=== PATIENT | male | born 1995 | race Hispanic/Latino ===

== ENCOUNTER 2017-12-01 00:33 | Emergency (ER) | payer OTHER, MEDICAID, SELFPAY ==
[2017-12-01 00:49] VITALS: BP 135/85; PULSE 68; RESP 15; TEMP 36.8; O2SAT 98; BMI 23.7
--- NOTE | 2017-12-01 01:20 | ED_ITS ---
HPI - Male Genitourinary General Chief complaint: Urogenital-Male Stated complaint: TESTICLE PAIN Time Seen by Provider: 12/01/17 01:19 Source: patient Mode of arrival: ambulatory Limitations: no limitations History of Present Illness HPI Narrative: The patient has been having intermittent left hemiscrotum pain for 2 months. He has been seen previously. He has been tested for low testosterone and hypogonadism. He was referred to Urology, nothing was done other than ordering an ultrasound of the scrotum. He presents now with increased discomfort the last 2 days. He has no fever, there is no swelling. There is no penile discharge. His significant other was with him, neither has a history of STD. There are no associated skin lesions. Related Data Previous Rx's Medication Instructions Recorded doxycycline hyclate 100 mg PO BID #28 cap 12/01/17 Allergies Allergy/AdvReac Type Severity Reaction Status Date / Time No Known Allergies Allergy Uncoded 12/01/17 00:49 Review of Systems Constitutional Denies chills, Denies fatigue, Denies fever(s) and Denies night sweats ENT Ears, Nose, Mouth, and Throat: Denies dysphagia Gastrointestinal Gastrointestinal: Denies abdominal pain, Denies change in bowel habits, Denies constipation, Denies cramping, Denies dysphagia, Denies diarrhea, Denies nausea and Denies vomiting Genitourinary Reports as per HPI, Denies hematuria, Denies difficulty urinating, Denies genital lesions, Reports genital pain, Denies dysuria, Denies urinary incontinence and Denies urinary urgency Musculoskeletal Reports abnormal gait Integumentary/Breasts Denies pruritus, Denies erythema, Denies rash and Denies wounds Neurologic Reports abnormal gait Endocrine Denies fatigue [facility] Social History Smoking Status: Never smoker Exam Initial Vital Signs Initial Vital Signs: Vital Signs Temperature 98.3 F 12/01/17 00:49 Pulse Rate 68 12/01/17 00:49 Respiratory Rate 15 12/01/17 00:49 Blood Pressure 135/85 H 12/01/17 00:49 Pulse Oximetry 98 12/01/17 00:49 Const General: healthy appearing, comfortable, well developed and well groomed GI Inspection: non-distended Palpation: soft, no hepatosplenomegaly, No guarding, No pulsatile mass and No tender Auscultation: normal bowel sounds External: normal external exam Penis: normal penis Testes: other (Testicles are both normal. There is no scrotal mass. He has left epididymal tenderness only. Exam is consistent with epididymitis.) Course Orders Ordered: Discontinued Medications Doxycycline Hyclate (Vibramycin) 100 mg PO NOW ONE Stop: 12/01/17 01:28 Last Admin: 12/01/17 01:47 Dose: 100 mg Vital Signs - 8 hr 12/01/17 00:49 Temperature 98.3 F Pulse Rate 68 Respiratory Rate 15 Blood Pressure 135/85 H Pulse Oximetry 98 Discharge Plan Departure Patient Disposition: Home, Self-Care Clinical Impression: Acute epididymitis, Epididymitis Discharge Date/Time: 12/01/17 02:00 Interventions: ED Discharge Assessment Last Done: 12/01/17 02:00 Instructions: Epididymitis Activity Restrictions/Additional Instructions: Doxycycline 2 times daily as prescribed. Be sure you are drinking plenty of water. Follow-up with your doctor as planned. Return if worse. Prescriptions: New doxycycline hyclate 100 mg capsule 100 mg PO BID Qty: 28 RF: 0
[2017-12-01] MEDS: DOXYCYCLINE HYCLATE 100 MG TABLET PO (01:47)
== END 2017-12-01 02:00 | disposition home or self-care (01) ==
PROVIDERS: Emergency Provider Emergency Medicine
DX: N45.1 Epididymitis (principal)
CPT/HCPCS: 81003; 99282

== ENCOUNTER → 2017-12-05 08:03 | Outpatient (CLI) | payer OTHER, MEDICAID, SELFPAY ==
--- NOTE | 2017-12-05 | DI.US.S_ITS ---
PROCEDURE: US SCROTUM INDICATIONS: Left testicular pain TECHNIQUE: Real-time scanning was performed of the scrotum and testicles, with image documentation. Color and pulse Doppler interrogation was performed of both testicles. COMPARISON: None. FINDINGS: Right: Testicle is normal in size at 4.6 x 2.2 x 2.9 cm. Echogenic foci are present, consistent with medical calcifications. Epididymis is normal in overall size and morphology. No hydrocele. Moderate-sized varicoceles. Overlying scrotal skin is normal in thickness. Left: Testicle is normal in size at 4.9 x 2.1 x 3.2 cm, and demonstrates multiple foci of microcalcifications. Epididymis is normal in overall size and morphology. No hydrocele. Moderate-sized varicoceles. Overlying scrotal skin is normal in thickness. Doppler: Color and pulse Doppler demonstrate normal and symmetric arterial flow in both testicles. IMPRESSION: 1. Testicular microlithiasis. This finding has increased risk for testicular cancer. Recommend clinical examination and self-examination. Ultrasound followup when clinically indicated. 2. No testicular mass or evidence for testicular portion. Intermittent torsion, however, is not excluded. 3. No evidence for epididymitis. 4. Moderate-sized varicoceles bilaterally. Dictated by: Rebeca Conroy M.D. on 12/05/2017 at 16:57 Approved by: Rebeca Conroy M.D. on 12/05/2017 at 17:03
== END ==
PROVIDERS: Visit Provider Physician Assistant
DX: N50.812 Left testicular pain (principal); I86.1 Scrotal varices
CPT/HCPCS: 76870

== ENCOUNTER 2018-01-24 19:00 | Emergency (ER) | payer OTHER, SELFPAY ==
[2018-01-24 19:12] VITALS: BP 128/82; PULSE 86; RESP 18; TEMP 36.2; O2SAT 98; BMI 23.7
--- NOTE | 2018-01-24 19:28 | ED.ANIMALBIT ---
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 He was helping to stay and vaccinate a 6-month-old kitten when it bit him, catching the edge of his right thumb a little earlier. He cleaned it thoroughly with chlorhexidine. He states that the kitten had not been vaccinated yet but does not have any signs of rabies and had been living with a family, so this is not a concern at the vet. He denies any weakness, paresthesia or pain in the thumb currently, but thought he might need antibiotics. He also has questions about side effects and pain medication to take for his recent varicocele surgery a week ago. He stopped Vicodin because it made him itchy and he has felt sort of foggy since off of the anesthesia. He was initially told he could not take NSAIDs. He denies any acute symptoms today. He has not had any new fever other complaints. Related Data Previous Rx's Medication Instructions Recorded amoxicillin-pot clavulanate 1 tab PO Q12H #14 tab 01/24/18 [Augmentin] Allergies Allergy/AdvReac Type Severity Reaction Status Date / Time No Known Allergies Allergy Uncoded 12/01/17 00:49 Review of Systems <Michelle Mccracken PA-C - Last Filed: 01/24/18 22:23> Review of Systems All systems reviewed & are unremarkable except as noted in HPI and below Exam <Michelle Mccracken PA-C - Last Filed: 01/24/18 22:23> Narrative Exam Narrative: GENERAL APPEARANCE: Patient sitting comfortably, in no distress. LUNGS: Clear to auscultation bilaterally. HEART: Rate and rhythm regular without murmur, normal S1 and S2, no S3 or S4. DERMATOLOGIC: Right thumb tip just inferior to the nail there is a 5 mm semi circular superficial partial avulsion but no skin flap. Minimal tenderness. No d/c or active bleeding MUSCULOSKELETAL: Right thumb full range of motion. Strength is intact in all harrell against resistance. No joint effusion NEUROVASCULAR: Right thumb is warm and pink with brisk cap refill. Sensation is grossly intact Initial Vital Signs Initial Vital Signs: Vital Signs Temperature 97.2 F L 01/24/18 19:12 Pulse Rate 86 01/24/18 19:12 Respiratory Rate 18 01/24/18 19:12 Blood Pressure 128/82 H 01/24/18 19:12 Pulse Oximetry 98 01/24/18 19:12 <Osman Arora DO - Last Filed: 01/25/18 03:18> Initial Vital Signs Initial Vital Signs: Vital Signs Temperature 97.2 F L 01/24/18 19:12 Pulse Rate 86 01/24/18 19:12 Respiratory Rate 18 01/24/18 19:12 Blood Pressure 128/82 H 01/24/18 19:12 Pulse Oximetry 98 01/24/18 19:12 Course <Michelle Mccracken PA-C - Last Filed: 01/24/18 22:23> Vital Signs - 8 hr 01/24/18 19:12 Temperature 97.2 F L Pulse Rate 86 Respiratory Rate 18 Blood Pressure 128/82 H Pulse Oximetry 98 <Osman Arora DO - Last Filed: 01/25/18 03:18> Vital Signs - 8 hr 01/24/18 19:12 Temperature 97.2 F L Pulse Rate 86 Respiratory Rate 18 Blood Pressure 128/82 H Pulse Oximetry 98 Discharge Plan Departure Patient Disposition: Home Clinical Impression: Cat bite Discharge Date/Time: 01/24/18 20:01 Interventions: ED Discharge Assessment Last Done: 01/24/18 20:00 Instructions: DI for Cat Bite Activity Restrictions/Additional Instructions: Please return if you have any acutely worsening symptoms as we talked about, such as fever, spreading redness, draining pus. Please picking tech and start the antibiotic tonight. Please stay off of work tomorrow so that you can talk with your surgeon about anesthesia side effects and your postoperative pain. Please see if it is okay for you to try taking Aleve, 1-2 tabs twice daily, or ibuprofen 3-4 tab every 8 hr for pain, which should not make you sleepy. You can also add Tylenol as needed Prescriptions: New amoxicillin-pot clavulanate [Augmentin] 875-125 mg tablet 1 tab PO Q12H Qty: 14 RF: 0 Discontinued doxycycline hyclate 100 mg capsule 100 mg PO BID Qty: 28 RF: 0 Stand Alone Forms: Work/School Restrictions <Osman Arora DO - Last Filed: 01/25/18 03:18> Cosign ED Attending Cosarsenioature Attestation: I was immediately available in the department for consultation. Documentation has been reviewed. I agree with assessment and plan.
--- NOTE | 2018-01-24 20:03 | PC.NURSE ---
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
== END 2018-01-24 20:01 | disposition home or self-care (01) ==
PROVIDERS: Emergency Provider Internal Medicine
DX: S61.051A Open bite of right thumb without damage to nail, initial encounter (principal); W55.01XA Bitten by cat, initial encounter
CPT/HCPCS: 99282